=== PATIENT | female | born 2000 | race African-American/Black ===

== ENCOUNTER 2020-09-28 07:11 | Inpatient (IN) ==
[2020-09-28] MEDS ORDERED: FAMOTIDINE 20 MG/2 ML VIAL IV ONE (07:39)
[2020-09-28] MEDS ORDERED: CITRIC ACID/SODIUM CITRATE 30 ML UDCUP PO ONE (07:39)
[2020-09-28] MEDS: LACTATED RINGERS 1,000 ML IV PRN ×2 (07:40→09:21)
[2020-09-28] MEDS ORDERED: OXYTOCIN/LR 20 UNIT/1,000 ML BAG IV ONE ×3 (07:42→14:11)
[2020-09-28] MEDS ORDERED: ceFAZolin 3,000 MG in SYRINGE 1 EACH IV ONE (07:45)
[2020-09-28 07:56] LABS: Basophils % 0.2 % (0.0-0.8); Eosinophils # 0.1 10*3/uL (0.0-0.87); Eosinophils % 0.5 % (0.00-10.9); Hematocrit 32.2 VOL% (35.7-47.0); Hemoglobin 11.2 GM/DL (12.0-16.0); Immature Granulocytes % 0.7 %; Immature Granulocytes Absolute 0.07 #; Lymphocytes % 20.3 % (21.3-54.2); Mean Corpuscular HGB Conc 34.8 GM/DL (32-36); Mean Corpuscular Volume 85.4 FL (87-102); Mean Platelet Volume 9.6 FL (9.6-12.0); Monocytes % 7.5 % (1.7-12.7); Neutrophils % 70.8 % (38.7-73.9); Platelet Count 322 T/CUMM (130-400); Red Blood Count 3.77 MC/CUMM (3.8-5.5); Red Cell Distribution Width 14.1 % (9.3-17.3); White Blood Count 10.1 T/CUMM (4-12)
[2020-09-28] MEDS ORDERED: ONDANSETRON 4 MG/2 ML VIAL ONE (08:29)
[2020-09-28] MEDS ORDERED: MORPHINE 10 MG/10 ML VIAL ONE (08:29)
[2020-09-28] MEDS ORDERED: BUPIVACAINE SPINAL 0.75% 2 ML AMP SPINAL ONE (08:29)
[2020-09-28] MEDS ORDERED: fentaNYL 100 MCG/2 ML VIAL ONE (08:29)
[2020-09-28] MEDS ORDERED: CARBOPROST TROMETHAMINE 250 MCG/ML AMP IM ONE (08:51)
[2020-09-28] MEDS ORDERED: miSOPROStoL 200 MCG TABLET ONE (08:51)
[2020-09-28] MEDS ORDERED: METHYLERGONOVINE 0.2 MG/1 ML AMP ONE (08:51)
[2020-09-28] MEDS ORDERED: TRANEXAMIC ACID 1,000 MG/10 ML VIAL ONE (08:52)
[2020-09-28] MEDS ORDERED: SODIUM CHLORIDE 0.9% 0 ML IV ONE (08:52)
[2020-09-28] MEDS ORDERED: ACETAMINOPHEN 1,000 MG/100 ML VIAL IV ONE (10:25)
[2020-09-28] MEDS ORDERED: ePHEDrine 50 MG/ML VIAL ONE (11:04)
[2020-09-28] MEDS ORDERED: LACTATED RINGERS 1,000 ML IV ONE (11:17)
[2020-09-28] MEDS ORDERED: LIDOCAINE 2% 5 ML VIAL ONE (11:18)
[2020-09-28] MEDS ORDERED: BUPIVACAINE MPF 0.25% 30 ML VIAL ONE (11:34)
[2020-09-28] MEDS ORDERED: PHENYLEPHRINE 1 MG/10 ML SYRINGE IV ONE ×2 (11:38→11:43)
[2020-09-28 11:47] LABS: Urine Appearance Clear (Clear); Urine Color Yellow (Yellow); Urine Specific Gravity 1.005 (1.001-1.035)
[2020-09-28 11:48] LABS: Bilirubin,Urine Negative (Negative); Blood, Urine Negative (Negative); Glucose,Urine (UA) Negative (Negative); Ketones,Urine 100 mg/dL (Negative); Nitrite,Urine Negative (Negative); Protein,Urine Negative; Urine Urobilinogen 0.2 EU/DL (0.2-1.0)
[2020-09-28 11:52] LABS: Cord Arterial Blood HCO3 20.2 MMOL/L
[2020-09-28 11:58] LABS: Cord Venous Blood HCO3 21.2 MMOL/L; Cord Venous Blood PCO2 48.3 MMHG; Cord Venous Blood PO2 21.1
[2020-09-28] MEDS ORDERED: MAGNESIUM HYDROXIDE SUSP 30 ML UDCUP PO PRN (14:11)
[2020-09-28] MEDS ORDERED: ACETAMINOPHEN 325 MG TABLET PO PRN (14:11)
[2020-09-28] MEDS ORDERED: RHO(D) IMMUNE GLOBULIN 300 MCG SYRINGE IM ONE (14:11)
[2020-09-28] MEDS: ONDANSETRON 4 MG/2 ML VIAL IV PRN ×2 (14:28→17:40)
[2020-09-28] MEDS ORDERED: ceFAZolin 1,000 MG in SYRINGE 1 EACH IV SCH (14:30)
[2020-09-28] MEDS ORDERED: LACTATED RINGERS 1,000 ML IV SCH (14:30)
[2020-09-28 18:16] LABS: Basophils % 0.3 % (0.0-0.8); Hematocrit 31.8 VOL% (35.7-47.0); Hemoglobin 10.6 GM/DL (12.0-16.0); Immature Granulocytes % 0.5 %; Immature Granulocytes Absolute 0.06 #; Lymphocytes # 1.7 10*3/uL (1.4-4.0); Lymphocytes % 14.5 % (21.3-54.2); Mean Corpuscular HGB Conc 33.3 GM/DL (32-36); Mean Corpuscular Volume 87.4 FL (87-102); Mean Platelet Volume 9.3 FL (9.6-12.0); Monocytes % 6.9 % (1.7-12.7); Neutrophils % 77.8 % (38.7-73.9); Platelet Count 292 T/CUMM (130-400); Red Blood Count 3.64 MC/CUMM (3.8-5.5); Red Cell Distribution Width 14.4 % (9.3-17.3); White Blood Count 11.5 T/CUMM (4-12)
[2020-09-28] MEDS ORDERED: SODIUM CHLORIDE 0.9% 100 ML IV ONE (18:19)
[2020-09-28] MEDS: ceFAZolin 1,000 MG in SYRINGE 1 EACH IV SCH (18:29)
[2020-09-28] MEDS: oxyCODONE/ACETAMINOPHEN 5-325 MG TABLET PO PRN (20:59)
[2020-09-28] MEDS: SIMETHICONE CHEW 80 MG TABLET PO PRN (20:59)
[2020-09-28] MEDS: DOCUSATE SODIUM 100 MG CAPSULE PO SCH (20:59)
[2020-09-29] MEDS ORDERED: diphenhydrAMINE 50 MG/1 ML VIAL IV PRN (00:24)
[2020-09-29] MEDS: ceFAZolin 1,000 MG in SYRINGE 1 EACH IV SCH (02:54)
[2020-09-29] MEDS: IBUPROFEN 800 MG TABLET PO PRN ×2 (03:13→20:07)
[2020-09-29] MEDS: oxyCODONE/ACETAMINOPHEN 5-325 MG TABLET PO PRN ×2 (03:14→18:36)
[2020-09-29 04:24] LABS: Basophils % 0.3 % (0.0-0.8); Eosinophils # 0.1 10*3/uL (0.0-0.87); Eosinophils % 0.6 % (0.00-10.9); Hemoglobin 10.7 GM/DL (12.0-16.0); Immature Granulocytes % 0.5 %; Immature Granulocytes Absolute 0.06 #; Lymphocytes # 2.4 10*3/uL (1.4-4.0); Lymphocytes % 20.9 % (21.3-54.2); Mean Corpuscular HGB Conc 32.4 GM/DL (32-36); Mean Corpuscular Volume 88.5 FL (87-102); Mean Platelet Volume 9.3 FL (9.6-12.0); Monocytes % 8.3 % (1.7-12.7); Neutrophils % 69.4 % (38.7-73.9); Platelet Count 310 T/CUMM (130-400); Red Blood Count 3.73 MC/CUMM (3.8-5.5); Red Cell Distribution Width 14.2 % (9.3-17.3); White Blood Count 11.5 T/CUMM (4-12)
[2020-09-29] MEDS: MULTIVITAMIN (PRENATAL) TABLET PO SCH (10:09)
[2020-09-29] MEDS: DOCUSATE SODIUM 100 MG CAPSULE PO SCH ×2 (10:09→20:07)
[2020-09-29] MEDS: SIMETHICONE CHEW 80 MG TABLET PO PRN ×2 (10:09→20:07)
[2020-09-29] MEDS ORDERED: BISACODYL 10 MG SUPP RECTAL PRN (20:00)
[2020-09-29] MEDS ORDERED: oxyCODONE/ACETAMINOPHEN 5-325 MG TABLET PO PRN (21:46)
[2020-09-30] MEDS: IBUPROFEN 800 MG TABLET PO PRN (05:34)
[2020-09-30] MEDS: oxyCODONE/ACETAMINOPHEN 5-325 MG TABLET PO PRN (05:35)
[2020-09-30] MEDS: DOCUSATE SODIUM 100 MG CAPSULE PO SCH (09:45)
[2020-09-30] MEDS: MULTIVITAMIN (PRENATAL) TABLET PO SCH (09:45)
[2020-09-30 11:17] VITALS: BP 131/72
== END 2020-09-30 14:30 | disposition home or self-care (01) | DRG 788 ==
LOC: N.LD 07:11 → N.OB 15:33
PROVIDERS: ADMIT Obstetrics & Gynecology; ATTEND Obstetrics & Gynecology
PROC: LDCSECT (ICD-10-PCS; 2020-09-28 10:15)